=== PATIENT | male | born 1975 | race Caucasian/White ===

== ENCOUNTER 2016-05-01 13:11 | Emergency (ER) | payer OTHER ==
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
[~2016-05-01 13:11] MED LIST: FLEXERIL10 M1 PO; KEFLEX500 M1 PO; LORTAB 10/500 T1 TAB; MOBIC PO; NEURONTIN300 MG PO; NO MEDICATIONS; PHENERGAN PO; TESSALON200 MG PO; TRICOR; ULTRAM PO; VOLTAREN50 MG PO; VOLTAREN75 MG PO; ZITHROMAX PO; ZOVIRAX800 MG PO
== END 2016-05-01 14:14 | disposition home or self-care (01) ==
LOC: CED 13:11
DX: S62.002A Unspecified fracture of navicular [scaphoid] bone of left wrist, initial encounter for closed fracture (principal); W22.8XXA Striking against or struck by other objects, initial encounter
CPT/HCPCS: 29125; 73110; 99283